=== PATIENT | male | born 1960 | race Caucasian/White ===

== ENCOUNTER 2020-07-16 08:30 | Emergency (ER) | payer BC ==
[2020-07-16] MEDS ORDERED: Sodium Chloride 0.9% 1,000 ML IV SCH ×2 (09:15→10:45)
[2020-07-16] MEDS ORDERED: Ondansetron 4 MG/2 ML SDV IVPUSH ONE (09:17)
--- NOTE | 2020-07-16 09:17 | EDM.PDOC ---
ED HPI GENERAL MEDICAL PROBLEM - General Chief Complaint: Cardiovascular Problem Stated Complaint: DIZZY/THROWING UP/RACING HEART Time Seen by Provider: 07/16/20 09:11 Source of Information: Reports: Patient History Limitations: Reports: No Limitations - History of Present Illness INITIAL COMMENTS - FREE TEXT/NARRATIVE: 59-year-old male presents to the ED after attending the walk-in clinic at [facility] this morning with chief complaint of palpitations. States he notices most when he is lying still at bedtime. He can feel his heart racing and going too fast and beating hard against his chest wall. This has been noticeable over the last 2 to 3 weeks. He gives a month history of loose diarrhea stools usually 2 or 3 times day for the last month as well. No blood in the stools noted. He states if he eats he usually has a diarrhea stool within 2 hours. No associated abdominal cramping pain. He feels lightheaded upon standing or particularly changing position from lying down to sitting and then standing. He does take medication for hypertension. Does have a mild a productive cough at times. Intermittent nausea as well. Reports he was so fatigued that he spent 18 hours in bed on July 19. Onset: Unknown/Unsure (Symptoms off and on for the last month.) Duration: Week(s):, Chronic, Getting Worse Location: Reports: Chest (Palpitations and racing heart. Associated with mild dizziness and lightheadedness.), Other (Diarrhea stools 2-3 times per day) Quality: Reports: Other Severity: Moderate Improves with: Reports: None Worsens with: Reports: Other (With standing up) Context: Denies: Activity ( from the seated position.), Exercise, Lifting, Sick Contact, Trauma, Other Associated Symptoms: Reports: Malaise, Shortness of Breath, Other (Pyuria polydipsia.). 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 07/16/20 [Rx] dexAMETHasone [Dexamethasone] 4 mg PO BID #10 tablet 07/16/20 [Rx] Past Medical History Cardiovascular History: Reports: Hypertension - Past Surgical History HEENT Surgical History: Reports: Tonsillectomy Social & Family History - Tobacco Use Tobacco Use Status *Q: Never Tobacco User - Caffeine Use Caffeine Use: Reports: Coffee - Recreational Drug Use Recreational Drug Use: No - Living Situation & Occupation Living situation: Reports: Single ED ROS GENERAL - Review of Systems Review Of Systems: See Below Constitutional: Reports: Malaise, Weakness, Fatigue, Decreased Appetite, Weight Loss. 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 Denies: Wheezing, Pleuritic Chest Pain Cardiovascular: Reports: Blood Pressure Problem, Lightheadedness (Agree with changing positions a orthostatic static), Palpitations (Is his heart is racing at times). Denies: Chest Pain, Claudication, Dyspnea on Exertion, Edema ( lightheadedness.), Orthopnea Endocrine: Reports: Fatigue GI/Abdominal: Reports: Diarrhea (2-3 loose), Nausea ( semiformed stools per day without blood.), Vomiting (Rare vomiting). Denies: Stool Incontinence ( Patient on nausea) : Reports: Frequency Musculoskeletal: Reports: Joint Pain (Lateral knee pain) Skin: Reports: No Symptoms Neurological: Reports: No Symptoms Psychiatric: Reports: No Symptoms ED EXAM, GENERAL - Physical Exam Exam: See Below Exam Limited By: No Limitations General Appearance: Alert, WD/WN, No Apparent Distress, Other (Temperature is 37.0. Heart rate is 113 and sinus tachycardia on the monitor. Respiratory is 19 with O2 sats of 96% room air BP is 159/89.) Eye Exam: Bilateral Eye: Normal Fundi, PERRL Throat/Mouth: Normal Inspection, Other Head: Atraumatic, Normocephalic (Tongue is dry and coated) Neck: Normal Inspection, Supple, Non-Tender, Full Range of Motion. No: Lymphadenopathy (L), Lymphadenopathy (R) Respiratory/Chest: No Respiratory Distress, Lungs Clear, Normal Breath Sounds, No Accessory Muscle Use Cardiovascular: Normal Peripheral Pulses, No Edema, No Gallop, No Murmur, No Rub, Tachycardia (Is tachycardia at 113/min at rest) Peripheral Pulses: 3+: Carotid (L), Carotid (R), Posterior Tibial (L), Posterior Tibial (R), Dorsalis Pedis (L), Dorsalis Pedis (R) GI/Abdominal: Normal Bowel Sounds, Soft, Non-Tender, No Organomegaly, No Mass, Pelvis Stable Back Exam: Normal Inspection, Full Range of Motion. No: CVA Tenderness (L), CVA Tenderness (R) Extremities: Normal Inspection, No Pedal Edema, Other (His knees are quite tender to touch.). No: Normal Range of Motion Neurological: Alert, Oriented, CN II-XII Intact, Normal Cognition Psychiatric: Normal Affect, Normal Mood Skin Exam: Warm, Dry, Intact, Normal Color, Other (Day triangular-shaped 2 cm x 2 cm triangular-shaped lesion adjacent to his left eye which appears to be a skin cancer.) #1 Interpretation EKG Date: 07/16/20 Time: 08:56 Rhythm: Other (Sinus tachycardia) Rate (Beats/Min): 110 Henlawson: LAD-Left Henlawson Deviation (Minimal left axis deviation -4 degrees) P-Wave: Present QRS: Other (Early R wave transition consider septal hypertrophy pattern.) ST-T: Other (T wave inversion V5 and V6 leads I and aVL nonspecific finding T wave flattening in aVF again nonspecific finding) EKG Interpretation Comments: Abnormal ECG Course - Vital Signs Last Recorded V/S: Last Vital Signs Temp 37.0 C 07/16/20 08:41 Pulse 113 H 07/16/20 08:41 Resp 19 07/16/20 08:41 BP 159/89 H 07/16/20 08:41 Pulse Ox 96 07/16/20 08:41 - Orders/Labs/Meds Orders: Active Orders 24 hr Category Date Time Status STOOL CULTURE/SHIGA TOXIN [MREF] Stat Lab 07/16/20 09:14 Ordered WBC, STOOL [OP] Stat Lab 07/16/20 09:14 Ordered Lactated Ringers [Ringers, Lactated] 1,000 ml Med 07/16/20 13:00 Active IV ASDIRECTED Magnesium Sulfate/Water [Magnesium Sulfate in Water Med 07/16/20 10:19 Active Premix] 4 gm Premix Bag 1 bag IV ONETIME Sodium Chloride 0.9% [Normal Saline] 1,000 ml Med 07/16/20 09:15 Active IV ASDIRECTED Sodium Chloride 0.9% [Normal Saline] 1,000 ml Med 07/16/20 10:45 Active IV ASDIRECTED Medication Orders Sodium Chloride (Normal Saline) 1,000 mls @ 999 mls/hr IV ASDIRECTED PATTI Last Admin: 07/16/20 09:25 Dose: 999 mls/hr Documented by: CARMEN Magnesium Sulfate 4 gm/ Premix 50 mls @ 12.5 mls/hr IV ONETIME ONE Stop: 07/16/20 14:18 Last Admin: 07/16/20 10:42 Dose: 12.5 mls/hr Documented by: CARMEN Sodium Chloride (Normal Saline) 1,000 mls @ 500 mls/hr IV ASDIRECTED PATTI Last Admin: 07/16/20 10:42 Dose: 500 mls/hr Documented by: CARMEN Lactated Ringer's (Ringers, Lactated) 1,000 mls @ 999 mls/hr IV ASDIRECTED PATTI Labs: Laboratory Tests 07/16/20 07/16/20 07/16/20 Range/Units 09:12 09:20 09:20 WBC 7.38 (4.23-9.07) K/mm3 RBC 4.43 L (4.63-6.08) M/mm3 Hgb 14.8 (13.7-17.5) gm/dl Hct 41.0 (40.1-51.0) % MCV 92.6 H (79.0-92.2) fl MCH 33.4 H (25.7-32.2) pg MCHC 36.1 H (32.2-35.5) g/dl RDW Std Deviation 39.5 (35.1-43.9) fL Plt Count 281 (163-337) K/mm3 MPV 9.7 (9.4-12.3) fl Neut % (Auto) 58.9 (34.0-67.9) % Lymph % (Auto) 19.0 L (21.8-53.1) % Kimball % (Auto) 21.0 H (5.3-12.2) % Eos % (Auto) 0.1 L (0.8-7.0) Baso % (Auto) 0.7 (0.1-1.2) % Neut # (Auto) 4.35 (1.78-5.38) K/mm3 Lymph # (Auto) 1.40 (1.32-3.57) K/mm3 Kimball # (Auto) 1.55 H (0.30-0.82) K/mm3 Eos # (Auto) 0.01 L (0.04-0.54) K/mm3 Baso # (Auto) 0.05 (0.01-0.08) K/mm3 Manual Slide Review Abnormal smear Sodium 129 L (136-145) mEq/L Potassium 2.9 L (3.5-5.1) mEq/L Chloride 90 L (98-107) mEq/L Carbon Dioxide 27 (21-32) mEq/L Anion Gap 14.9 (5-15) BUN 24 H (7-18) mg/dL Creatinine 1.3 (0.7-1.3) mg/dL Est Cr Clr Drug Dosing 72.01 mL/min Estimated GFR (MDRD) 57 (>60) mL/min BUN/Creatinine Ratio 18.5 H (14-18) Glucose 271 H (74-106) mg/dL POC Glucose 255 H (70-105) mg/dL Hemoglobin A1c (4.50-6.20) % Calcium 9.3 (8.5-10.1) mg/dL Magnesium 1.4 L (1.8-2.4) mg/dl Total Bilirubin 0.8 (0.2-1.0) mg/dL AST 47 H (15-37) U/L ALT 93 H (16-63) U/L Alkaline Phosphatase 50 (46-116) U/L Troponin I < 0.017 (0.00-0.056) ng/mL C-Reactive Protein 5.6 H* (<1.0) mg/dL Total Protein 8.7 H (6.4-8.2) g/dl Albumin 4.0 (3.4-5.0) g/dl Globulin 4.7 gm/dL Albumin/Globulin Ratio 0.9 L (1-2) TSH 3rd Generation 0.625 (0.358-3.74) uIU/mL Urine Color (Yellow) Urine Appearance (Clear) Urine pH (5.0-8.0) Ur Specific Lincoln (1.005-1.030) Urine Protein (Negative) Urine Glucose (UA) (Negative) Urine Ketones (Negative) Urine Occult Blood (Negative) Urine Nitrite (Negative) Urine Bilirubin (Negative) Urine Urobilinogen (0.2-1.0) Ur Leukocyte Esterase (Negative) U Hyaline Cast (Auto) (0-5) /lpf Urine RBC (0-5) /hpf Urine WBC (0-5) /hpf Ur Epithelial Cells (0-5) /hpf Urine Bacteria (FEW) /hpf Urine Mucus (FEW) /hpf SARS-CoV-2 RNA (FABRICIO) (NEGATIVE) 07/16/20 07/16/20 07/16/20 Range/Units 09:20 10:28 10:45 WBC (4.23-9.07) K/mm3 RBC (4.63-6.08) M/mm3 Hgb (13.7-17.5) gm/dl Hct (40.1-51.0) % MCV (79.0-92.2) fl MCH (25.7-32.2) pg MCHC (32.2-35.5) g/dl RDW Std Deviation (35.1-43.9) fL Plt Count (163-337) K/mm3 MPV (9.4-12.3) fl Neut % (Auto) (34.0-67.9) % Lymph % (Auto) (21.8-53.1) % Kimball % (Auto) (5.3-12.2) % Eos % (Auto) (0.8-7.0) Baso % (Auto) (0.1-1.2) % Neut # (Auto) (1.78-5.38) K/mm3 Lymph # (Auto) (1.32-3.57) K/mm3 Kimball # (Auto) (0.30-0.82) K/mm3 Eos # (Auto) (0.04-0.54) K/mm3 Baso # (Auto) (0.01-0.08) K/mm3 Manual Slide Review Sodium (136-145) mEq/L Potassium (3.5-5.1) mEq/L Chloride (98-107) mEq/L Carbon Dioxide (21-32) mEq/L Anion Gap (5-15) BUN (7-18) mg/dL Creatinine (0.7-1.3) mg/dL Est Cr Clr Drug Dosing mL/min Estimated GFR (MDRD) (>60) mL/min BUN/Creatinine Ratio (14-18) Glucose (74-106) mg/dL POC Glucose (70-105) mg/dL Hemoglobin A1c 7.60 H (4.50-6.20) % Calcium (8.5-10.1) mg/dL Magnesium (1.8-2.4) mg/dl Total Bilirubin (0.2-1.0) mg/dL AST (15-37) U/L ALT (16-63) U/L Alkaline Phosphatase (46-116) U/L Troponin I (0.00-0.056) ng/mL C-Reactive Protein (<1.0) mg/dL Total Protein (6.4-8.2) g/dl Albumin (3.4-5.0) g/dl Globulin gm/dL Albumin/Globulin Ratio (1-2) TSH 3rd Generation (0.358-3.74) uIU/mL Urine Color Yellow (Yellow) Urine Appearance Clear (Clear) Urine pH 6.0 (5.0-8.0) Ur Specific Lincoln > or = 1.030 (1.005-1.030) Urine Protein 2+ H (Negative) Urine Glucose (UA) 1+ H (Negative) Urine Ketones Negative (Negative) Urine Occult Blood Negative (Negative) Urine Nitrite Negative (Negative) Urine Bilirubin Negative (Negative) Urine Urobilinogen 0.2 (0.2-1.0) Ur Leukocyte Esterase Negative (Negative) U Hyaline Cast (Auto) 10-20 H (0-5) /lpf Urine RBC 0-5 (0-5) /hpf Urine WBC 0-5 (0-5) /hpf Ur Epithelial Cells 0-5 (0-5) /hpf Urine Bacteria Moderate H (FEW) /hpf Urine Mucus Moderate H (FEW) /hpf SARS-CoV-2 RNA (FABRICIO) Positive H (NEGATIVE) Meds: Medications Generic Name Dose Route Start Last Admin Trade Name Freq PRN Reason Stop Dose Admin Sodium Chloride 1,000 mls @ 999 mls/hr 07/16/20 09:15 07/16/20 09:25 Normal Saline IV 999 mls/hr ASDIRECTED PATTI Administration Magnesium Sulfate 4 gm/ Premix 50 mls @ 12.5 mls/hr 07/16/20 10:19 07/16/20 10:42 IV 07/16/20 14:18 12.5 mls/hr ONETIME ONE Administration Sodium Chloride 1,000 mls @ 500 mls/hr 07/16/20 10:45 07/16/20 10:42 Normal Saline IV 500 mls/hr ASDIRECTED PATTI Administration Lactated Ringer's 1,000 mls @ 999 mls/hr 07/16/20 13:00 Ringers, Lactated IV ASDIRECTED PATTI Discontinued Medications Generic Name Dose Route Start Last Admin Trade Name Zaida PRN Reason Stop Dose Admin Dexamethasone 6 mg 07/16/20 12:36 Decadron IVPUSH 07/16/20 12:37 ONETIME ONE Potassium Chloride 10 meq/ 100 mls @ 100 mls/hr 07/16/20 10:30 07/16/20 13:10 Premix IV 07/16/20 13:29 100 mls/hr Q1H PATTI Administration Ondansetron HCl 4 mg 07/16/20 09:17 07/16/20 09:32 Zofran IVPUSH 07/16/20 09:18 4 mg ONETIME ONE Administration - Radiology Interpretation Free Text/Narrative:: 59-year-old male who is a very poor historian presents to the ED from the clinic after he presented there complaining of palpitations and his heart was racing and going to fast. He can feel his heartbeat in his ears. He reports he not been feeling well for several weeks and perhaps even up to a month. Reports having loose yellowy diarrhea 2 or 3 times daily. Very poor appetite. Increased fatigue. Mild cough with minimal productive white sputum. Mild headache no definitive chills and no noted fever. 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 His heart rate at baseline was 118 to 124/min. It is sinus tachycardia. Patient clinically appears to be volume depleted. Plan he will receive a liter of fluids IV D5 LR. PlaN: labs will be collected. 1 view chest x-ray will be done as well. COVID-19 screen will be carried out. - Re-Assessments/Exams Free Text/Narrative Re-Assessment/Exam: 07/16/20 10:16 chest x-ray reveals mild to moderate cardiomegaly. There is minimal groundglass airspace disease within the left lower lung field no pneumothorax no pleural effusion. Allthough this would be an atypical presentation for coronavirus infection a Covid test will be obtained heart rate is currently down to 99/min with BP 148/85. O2 sats are 94% room air 07/16/20 10:19 White count is 7.38 with 59% neutrophils and 19% lymphocytes. Hemoglobin is 14.8 with hematocrit of 41.0. MCV is 92.6. Platelet count 281,000. Sodium is low at 129 potassium is low at 2.9. Chloride is 90 with a bicarb of 27. Anion gap is 14.9 BUN is 24 with a creatinine of 1.3 and a GFR 57. BUN creatinine ratio is elevated at 18.5 glucose is elevated at 271 with a bedside glucose at 255. Patient has no history of type 2 diabetes although this is highly suggestive. His hemoglobin A1c is 7.60. Calcium is 9.3 with a magnesium low at 1.4. Bilirubin is 0.8 AST 47 with an ALT of 993. Alk phos days is 50 troponin I is less than 0.017. C-reactive protein is slightly elevated at 5.6. Total protein 8.7 with an albumin fraction of 4.0 TSH is 0.625 normal. Patient will be given magnesium 4 g IV. He will also receive K rider 10 mEq x 3. 07/16/20 10:34 Discussed the options with the patient in terms that he needs IV fluid replacement to improve his hyponatremia. He needs serum magnesium to improve his magnesium levels and potassium supplementation. It appears if he is type II diabetic he is very minimally diabetic as his glycosylated protein is 7.6. 07/16/20 12:33 and 19 screen did come back positive. From what we can ascertain the patient spent all day Tuesday in bed and likely was ill on Tuesday --making him on day 6 of illness. Current O2 sats are 92 to 94% on room air. Departure - Departure Time of Disposition: 14:10 Disposition: Home, Self-Care 01 Reason for Transfer *Q: Other Condition: Fair Clinical Impression: Dehydration with hyponatremia, Hypomagnesemia syndrome, Hypokalemia due to inadequate potassium intake, COVID-19 determined by clinical diagnostic criteria Prescriptions: dexAMETHasone [Dexamethasone] 4 mg PO BID #10 tablet Magnesium Chloride [Slow-Mag] 71.5 mg PO BID #14 tablet.dr Referrals: Derek Calixto Jr, MD [Primary Care Provider] - Forms: ED Department Discharge, ED Return to Work/School Form Additional Instructions: Evaluation in the emergency room today in regards to generally not feeling well with generalized weakness lightheadedness and feeling faint. Lab tests done through the ED revealed that you were moderately dehydrated. It did prove that you were COVID-19 positive with atypical presentation since you do not have a severe cough or low oxygen levels. You were found to be very low on many of your serum electrolytes. Sodium was low at 127 this is secondary to drinking primarily water instead of any juices which contain electrolytes. The extra water diluted the sodium in your bloodstream which makes muscles weak and nausea and vomiting and loss of appetite. Lack of ability to eat caused a lobe serum potassium level which we replaced in the ED. It also caused you to have a very low serum magnesium level which we replaced in the ED. This too will improve once you are able to eat again particularly meat. 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 COVID-19 typically makes you quite ill for a period of 2 weeks. We presume that you got sick on about Tuesday, July 12. This means you would have to self quarantine for another 10 days to prevent exposure of other personnel to the virus. Typically day 8-10 of the illness can be the worst in terms of no appetite severe fatigue and low oxygen levels. If this occurs you should return to the ED. I am going to start you on steroids dexamethasone which was started in the ED. You will need to take a tablet of dexamethasone twice daily usually with breakfast and supper next 5 days to help reduce inflammation caused by the COVID-19 illness and hopefully prevent you from having to come back to the hospital. You also need a magnesium supplement tablet Slow-Mag 1 tablet twice daily for the next week. Sepsis Event Note (ED) - Evaluation Sepsis Screening Result: No Definite Risk - Focused Exam Vital Signs: Vital Signs Temp Pulse Resp BP Pulse Ox 07/16/20 08:41 37.0 C 113 H 19 159/89 H 96 - My Orders Last 24 Hours: My Active Orders 07/16/20 09:14 STOOL CULTURE/SHIGA TOXIN [MREF] Stat WBC, STOOL [OP] Stat 07/16/20 09:15 Sodium Chloride 0.9% [Normal Saline] 1,000 ml IV ASDIRECTED 07/16/20 10:19 Magnesium Sulfate/Water [Magnesium Sulfate in Water Premix] 4 gm Premix Bag 1 bag IV ONETIME 07/16/20 10:45 Sodium Chloride 0.9% [Normal Saline] 1,000 ml IV ASDIRECTED 07/16/20 13:00 Lactated Ringers [Ringers, Lactated] 1,000 ml IV ASDIRECTED - Assessment/Plan Last 24 Hours: My Active Orders 07/16/20 09:14 STOOL CULTURE/SHIGA TOXIN [MREF] Stat WBC, STOOL [OP] Stat 07/16/20 09:15 Sodium Chloride 0.9% [Normal Saline] 1,000 ml IV ASDIRECTED 07/16/20 10:19 Magnesium Sulfate/Water [Magnesium Sulfate in Water Premix] 4 gm Premix Bag 1 bag IV ONETIME 07/16/20 10:45 Sodium Chloride 0.9% [Normal Saline] 1,000 ml IV ASDIRECTED 07/16/20 13:00 Lactated Ringers [Ringers, Lactated] 1,000 ml IV ASDIRECTED
[2020-07-16 09:56] LABS: HEMOGLOBIN A1C 7.6 % (4.50-6.20)
--- NOTE | 2020-07-16 10:16 | CR ---
PROCEDURE INFORMATION: Exam: XR Chest, 1 View Exam date and time: 07/16/2020 9:16 AM Age: 59 years old Clinical indication: Patient HX: Mild productive cough TECHNIQUE: Imaging protocol: XR of the chest Views: 1 view. COMPARISON: No relevant prior studies available. FINDINGS: Lungs: Minimal ground-glass airspace disease within the left lower lung field. Pleural space: Unremarkable. No pleural effusion. No pneumothorax. Heart/Mediastinum: Unremarkable. No cardiomegaly. Bones/joints: Unremarkable. IMPRESSION: Minimal ground-glass airspace disease within the left lower lung field. Followup radiographs recommended after appropriate therapy. Thank you for allowing us to participate in the care of your patient. Dictated and Authenticated by: García Rivera MD 07/16/2020 11:01 AM Central Time ([place] & [place]) JOHAN
[2020-07-16] MEDS ORDERED: Magnesium Sulfate/Water 4 GM in Premix Bag 1 BAG IV ONE (10:19)
[2020-07-16] MEDS: Potassium Chloride 10 MEQ in Premix Bag 1 BAG IV SCH ×3 (10:43→13:10)
[2020-07-16] MEDS ORDERED: Dexamethasone 10 MG/ML SDV IVPUSH ONE (12:36)
[2020-07-16] MEDS ORDERED: Lactated Ringers 1,000 ML IV SCH (13:00)
== END 2020-07-16 14:30 | disposition home or self-care (01) ==
LOC: JD.ED 08:30
DX: U07.1 COVID-19 (principal); E86.0 Dehydration; E87.1 Hypo-osmolality and hyponatremia; E83.42 Hypomagnesemia; E87.6 Hypokalemia; I10 Essential (primary) hypertension; R00.0 Tachycardia, unspecified
CPT/HCPCS: 36415; 71045; 80053; 81001; 82962; 83036; 83735; 84443; 84484; 85025; 86140; 87635; 99285; J1100; J2405; J3475; J3480; J7030; 93010; 99284; U0002

== ENCOUNTER 2024-05-15 09:38 | Emergency (ER) | payer BC ==
[2024-05-15 10:20] LABS: BASOPHILS ABSOLUTE AUTO 0.1 K/mm3 (0.0-0.2); BASOPHILS PERCENT AUTO 1.1 % (0.0-1.0); EOSINOPHILS PERCENT AUTO 0.5 % (0.0-6.0); HEMATOCRIT 35.2 % (42.0-52.0); HEMOGLOBIN 12.3 gm/dl (14.0-18.0); IMMATURE GRAN ABSOLUTE AUTO 0.02 K/mm3 (0.00-0.05); IMMATURE GRAN PERCENT AUTO 0.2 % (0.0-0.4); LYMPHOCYTES ABSOLUTE AUTO 1.4 K/mm3 (1.0-4.8); LYMPHOCYTES PERCENT AUTO 16.8 % (24.0-44.0); MEAN CORPUSCULAR HEMOGLOBIN 31.1 pg (28.0-32.0); MEAN CORPUSCULAR HGB CONC 34.9 g/dl (32.0-36.0); MEAN CORPUSCULAR VOLUME 89.1 fl (83.0-99.0); MEAN PLATELET VOLUME 9.2 fl (9.4-12.4); MONOCYTES ABSOLUTE AUTO 1.4 K/mm3 (0.0-0.8); MONOCYTES PERCENT AUTO 17.3 % (0.0-8.0); NEUTROPHILS ABSOLUTE AUTO 5.3 K/mm3 (1.8-7.7); NEUTROPHILS PERCENT AUTO 64.1 % (41.0-71.0); PLATELET COUNT,PLT 238 K/mm3 (150-400); RED BLOOD CELL COUNT 3.95 M/mm3 (4.52-5.90); WHITE BLOOD CELL COUNT,WBC 8.26 K/mm3 (3.9-11.3)
[2024-05-15 10:48] LABS: A/G RATIO 0.9 (1-2); ALBUMIN 4.1 g/dl (3.4-5.0); ANION GAP 14.6 (5-15); BILIRUBIN TOTAL 1.3 mg/dL (0.2-1.0); BUN/CREATININE RATIO 14.6 (14-18); CALCIUM 8.9 mg/dL (8.5-10.1); CREATININE 1.3 mg/dL (0.7-1.3); EST CRCL DRUG DOSING (CG) 68.5 mL/min; POTASSIUM,K 3.6 mEq/L (3.5-5.1); PROTEIN TOTAL,TP 8.6 g/dl (6.4-8.2)
[2024-05-15] MEDS: LORazepam 2 MG/ML SDV IVPUSH ONE ×2 (10:49→13:43)
[2024-05-15] MEDS: Sodium Chloride 0.9% 10 ML Syringe FLUSH PRN (10:49)
[2024-05-15] MEDS: Sodium Chloride 0.9% 1,000 ML IV ONE ×2 (10:49→13:56)
[2024-05-15 12:28] LABS: APPEARANCE,URINE CLEAR (Clear); BILIRUBIN,URINE NEGATIVE (Negative); COLOR,URINE YELLOW (Yellow); GLUCOSE,URINE NEGATIVE (Negative); KETONES,URINE TRACE (Negative); LEUKOCYTE ESTERASE,URINE NEGATIVE (Negative); NITRITE,URINE NEGATIVE (Negative); OCCULT BLOOD,URINE NEGATIVE (Negative); PROTEIN,URINE TRACE (Negative); UROBILINOGEN,URINE 0.2 (0.2-1.0)
[2024-05-15 12:41] LABS: BACTERIA,URINE FEW /hpf (FEW); MUCUS,URINE RARE /hpf (FEW); RBC,URINE 0-5 /hpf (0-5); SQUAMOUS EPITHELIAL CELLS,UR NOT SEEN /hpf (0-5); WBC,URINE 0-5 /hpf (0-5)
[2024-05-15] MEDS ORDERED: Magnesium Sulfate (4.06 MEQ/ML) 5 GM/10 ML SDV IV ONE (13:32)
[2024-05-15] MEDS: Magnesium Sulfate/Water 2 GM in Premix Bag 1 BAG IV ONE (13:43)
== END 2024-05-15 16:10 | disposition left against medical advice (07) ==
LOC: JD.ED 09:38
DX: F10.939 Alcohol use, unspecified with withdrawal, unspecified (principal); E87.1 Hypo-osmolality and hyponatremia; E83.42 Hypomagnesemia; E78.00 Pure hypercholesterolemia, unspecified; I10 Essential (primary) hypertension; E11.9 Type 2 diabetes mellitus without complications; Z86.16 Personal history of COVID-19; Z79.899 Other long term (current) drug therapy; Z79.84 Long term (current) use of oral hypoglycemic drugs
CPT/HCPCS: 36415; 80053; 80307; 81001; 83735; 85025; 96361; 96365; 96366; 96375; 96376; 99284; J2060; J3475; J3490; J7030

== ENCOUNTER 2025-07-20 00:03 | Inpatient (IN) | payer BC ==
[2025-07-20 00:11] LABS: BASOPHILS ABSOLUTE AUTO 0.1 K/mm3 (0.0-0.2); BASOPHILS PERCENT AUTO 0.4 % (0.0-1.0); EOSINOPHILS ABSOLUTE AUTO 0.0 K/mm3 (0.0-0.4); EOSINOPHILS PERCENT AUTO 0.0 % (0.0-6.0); IMMATURE GRAN ABSOLUTE AUTO 0.13 K/mm3 (0.00-0.05); IMMATURE GRAN PERCENT AUTO 0.9 % (0.0-0.4); LYMPHOCYTES ABSOLUTE AUTO 0.6 K/mm3 (1.0-4.8); LYMPHOCYTES PERCENT AUTO 4.2 % (24.0-44.0); MEAN PLATELET VOLUME 9.5 fl (9.4-12.4); MONOCYTES ABSOLUTE AUTO 1.1 K/mm3 (0.0-0.8); MONOCYTES PERCENT AUTO 7.7 % (0.0-8.0); NEUTROPHILS ABSOLUTE AUTO 12.2 K/mm3 (1.8-7.7); NEUTROPHILS PERCENT AUTO 86.8 % (41.0-71.0); NRBC ABSOLUTE 0.00 (0.00-0.02); NRBC PERCENT 0.0 % (0.0-0.2); PLATELET COUNT,PLT 167 K/mm3 (150-400); RED BLOOD CELL COUNT 3.85 M/mm3 (4.52-5.90); WHITE BLOOD CELL COUNT,WBC 14.09 K/mm3 (3.9-11.3)
[2025-07-20 00:30] LABS: INR 1.06
[2025-07-20] MEDS: fentaNYL 100 MCG/2 ML SDV IVPUSH ONE (00:34)
[2025-07-20] MEDS: Iopamidol 612 MG/ML 100 ML Bottle IVPUSH ONE (00:36)
[2025-07-20] MEDS: Sodium Chloride 0.9% 10 ML Syringe FLUSH PRN (00:36)
[2025-07-20] MEDS: Iopamidol 612 MG/ML 30 ML SDV IV ONE (00:36)
[2025-07-20 00:42] LABS: A/G RATIO 0.8 (1-2); ALANINE AMINOTRANSFERASE,ALT 97 U/L (16-63); ASPARTATE AMNIOTRANSFERASE,AST 247 U/L (15-37); BILIRUBIN TOTAL 1.3 mg/dL (0.2-1.0); BLOOD UREA NITROGEN,BUN 16 mg/dL (7-18); CARBON DIOXIDE,CO2 24 mEq/L (21-32); CHLORIDE,CL 93 mEq/L (98-107); CREATININE 1.2 mg/dL (0.7-1.3); ESTIMATED GFR 68 mL/min (>60); ETHANOL BLOOD MEDICAL 0.15 gm% (0.00); GLUCOSE RANDOM 160 mg/dL (70-99); POTASSIUM,K 4.3 mEq/L (3.5-5.1); PROTEIN TOTAL,TP 8.9 g/dl (6.4-8.2); SODIUM,NA 135 mEq/L (136-145)
[2025-07-20 00:44] LABS: CREATINE KINASE,CK 2012 U/L (39-308)
[2025-07-20] MEDS: Thiamine 200 MG/2 ML MDV IVPUSH ONE (01:43)
[2025-07-20 08:26] LABS: BASOPHILS ABSOLUTE AUTO 0.0 K/mm3 (0.0-0.2); BASOPHILS PERCENT AUTO 0.3 % (0.0-1.0); EOSINOPHILS ABSOLUTE AUTO 0.0 K/mm3 (0.0-0.4); EOSINOPHILS PERCENT AUTO 0.0 % (0.0-6.0); IMMATURE GRAN ABSOLUTE AUTO 0.04 K/mm3 (0.00-0.05); IMMATURE GRAN PERCENT AUTO 0.4 % (0.0-0.4); LYMPHOCYTES ABSOLUTE AUTO 0.6 K/mm3 (1.0-4.8); LYMPHOCYTES PERCENT AUTO 6.1 % (24.0-44.0); MEAN PLATELET VOLUME 9.7 fl (9.4-12.4); MONOCYTES ABSOLUTE AUTO 1.0 K/mm3 (0.0-0.8); MONOCYTES PERCENT AUTO 9.9 % (0.0-8.0); NEUTROPHILS ABSOLUTE AUTO 8.3 K/mm3 (1.8-7.7); NEUTROPHILS PERCENT AUTO 83.3 % (41.0-71.0); NRBC ABSOLUTE 0.00 (0.00-0.02); NRBC PERCENT 0.0 % (0.0-0.2); PLATELET COUNT,PLT 150 K/mm3 (150-400); RED BLOOD CELL COUNT 3.81 M/mm3 (4.52-5.90); WHITE BLOOD CELL COUNT,WBC 9.90 K/mm3 (3.9-11.3)
[2025-07-20 09:04] LABS: A/G RATIO 0.8 (1-2); ALANINE AMINOTRANSFERASE,ALT 105.0 U/L (16-63); ASPARTATE AMNIOTRANSFERASE,AST 287.0 U/L (15-37); BILIRUBIN TOTAL 1.2 mg/dL (0.2-1.0); BLOOD UREA NITROGEN,BUN 14.0 mg/dL (7-18); CARBON DIOXIDE,CO2 21.0 mEq/L (21-32); CHLORIDE,CL 93.0 mEq/L (98-107); CREATININE 1.0 mg/dL (0.7-1.3); EST CRCL DRUG DOSING (CG) 87.91 mL/min; ESTIMATED GFR 85.0 mL/min (>60); GLUCOSE RANDOM 141.0 mg/dL (70-99); POTASSIUM,K 3.6 mEq/L (3.5-5.1); PROTEIN TOTAL,TP 8.8 g/dl (6.4-8.2); SODIUM,NA 134.0 mEq/L (136-145)
[2025-07-20 09:06] LABS: CREATINE KINASE,CK 5581.0 U/L (39-308)
[2025-07-20] MEDS: Magnesium Sulf/Wat 4 GM/50 mL 4 GM in Premix Bag 1 BAG IV ONE (11:14)
[2025-07-20] MEDS: Lactated Ringers 1,000 ML IV ONE ×3 (11:42→14:50)
[2025-07-20] MEDS: LORazepam 2 MG/ML SDV IV PRN (14:55)
[2025-07-20] MEDS: Insulin Lispro 100 Unit/ML 3 ML KwikPen SUBCUT SCH (18:19)
[2025-07-20] MEDS: Lactated Ringers 1,000 ML IV SCH (20:43)
[2025-07-21] MEDS: LORazepam 2 MG/ML SDV IV PRN (01:30)
[2025-07-21 05:58] LABS: BASOPHILS ABSOLUTE AUTO 0.0 K/mm3 (0.0-0.2); BASOPHILS PERCENT AUTO 0.2 % (0.0-1.0); EOSINOPHILS ABSOLUTE AUTO 0.0 K/mm3 (0.0-0.4); EOSINOPHILS PERCENT AUTO 0.0 % (0.0-6.0); IMMATURE GRAN ABSOLUTE AUTO 0.11 K/mm3 (0.00-0.05); IMMATURE GRAN PERCENT AUTO 0.9 % (0.0-0.4); LYMPHOCYTES ABSOLUTE AUTO 0.6 K/mm3 (1.0-4.8); LYMPHOCYTES PERCENT AUTO 5.1 % (24.0-44.0); MEAN PLATELET VOLUME 10.0 fl (9.4-12.4); MONOCYTES ABSOLUTE AUTO 1.5 K/mm3 (0.0-0.8); MONOCYTES PERCENT AUTO 11.8 % (0.0-8.0); NEUTROPHILS ABSOLUTE AUTO 10.0 K/mm3 (1.8-7.7); NEUTROPHILS PERCENT AUTO 82.0 % (41.0-71.0); NRBC ABSOLUTE 0.00 (0.00-0.02); NRBC PERCENT 0.0 % (0.0-0.2); PLATELET COUNT,PLT 149 K/mm3 (150-400); RED BLOOD CELL COUNT 3.70 M/mm3 (4.52-5.90); WHITE BLOOD CELL COUNT,WBC 12.24 K/mm3 (3.9-11.3)
[2025-07-21 06:22] LABS: A/G RATIO 0.6 (1-2); ALANINE AMINOTRANSFERASE,ALT 82.0 U/L (16-63); ASPARTATE AMNIOTRANSFERASE,AST 173.0 U/L (15-37); BILIRUBIN TOTAL 1.2 mg/dL (0.2-1.0); BLOOD UREA NITROGEN,BUN 11.0 mg/dL (7-18); CARBON DIOXIDE,CO2 22.0 mEq/L (21-32); CHLORIDE,CL 91.0 mEq/L (98-107); CREATININE 0.8 mg/dL (0.7-1.3); EST CRCL DRUG DOSING (CG) 109.89 mL/min; ESTIMATED GFR 99.0 mL/min (>60); GLUCOSE RANDOM 138.0 mg/dL (70-99); POTASSIUM,K 3.6 mEq/L (3.5-5.1); PROTEIN TOTAL,TP 7.7 g/dl (6.4-8.2); SODIUM,NA 130.0 mEq/L (136-145)
[2025-07-21] MEDS: Magnesium Sulf/Wat 4 GM/50 mL 4 GM in Premix Bag 1 BAG IV ONE (08:26)
[2025-07-21] MEDS: PHENobarbitaL sodium 260 MG in Sodium Chloride 0.9% 100 ML IV ONE (09:17)
[2025-07-21] MEDS: Thiamine 200 MG/2 ML MDV IVPUSH SCH (11:23)
[2025-07-21] MEDS: Folic Acid 50 MG/10 ML MDV IV SCH (11:23)
[2025-07-21] MEDS ORDERED: PHENobarbital Sodium 65 MG/ML SDV IVPUSH ONE (12:46)
[2025-07-21] MEDS: cefTRIAXone 1 GM in Water For Injection, Sterile 10 ML IVPUSH SCH (14:44)
[2025-07-22 01:37] LABS: BASOPHILS ABSOLUTE AUTO 0.0 K/mm3 (0.0-0.2); BASOPHILS PERCENT AUTO 0.2 % (0.0-1.0); EOSINOPHILS ABSOLUTE AUTO 0.0 K/mm3 (0.0-0.4); EOSINOPHILS PERCENT AUTO 0.1 % (0.0-6.0); IMMATURE GRAN ABSOLUTE AUTO 0.07 K/mm3 (0.00-0.05); IMMATURE GRAN PERCENT AUTO 0.5 % (0.0-0.4); LYMPHOCYTES ABSOLUTE AUTO 1.9 K/mm3 (1.0-4.8); LYMPHOCYTES PERCENT AUTO 14.1 % (24.0-44.0); MEAN PLATELET VOLUME 9.8 fl (9.4-12.4); MONOCYTES ABSOLUTE AUTO 1.9 K/mm3 (0.0-0.8); MONOCYTES PERCENT AUTO 14.0 % (0.0-8.0); NEUTROPHILS ABSOLUTE AUTO 9.4 K/mm3 (1.8-7.7); NEUTROPHILS PERCENT AUTO 71.1 % (41.0-71.0); NRBC ABSOLUTE 0.00 (0.00-0.02); NRBC PERCENT 0.0 % (0.0-0.2); PLATELET COUNT,PLT 146 K/mm3 (150-400); RED BLOOD CELL COUNT 3.56 M/mm3 (4.52-5.90); WHITE BLOOD CELL COUNT,WBC 13.17 K/mm3 (3.9-11.3)
[2025-07-22 02:07] LABS: A/G RATIO 0.6 (1-2); ALANINE AMINOTRANSFERASE,ALT 71.0 U/L (16-63); ASPARTATE AMNIOTRANSFERASE,AST 128.0 U/L (15-37); BILIRUBIN TOTAL 0.8 mg/dL (0.2-1.0); BLOOD UREA NITROGEN,BUN 17.0 mg/dL (7-18); CARBON DIOXIDE,CO2 27.0 mEq/L (21-32); CHLORIDE,CL 98.0 mEq/L (98-107); CREATININE 1.0 mg/dL (0.7-1.3); EST CRCL DRUG DOSING (CG) 87.91 mL/min; ESTIMATED GFR 85.0 mL/min (>60); GLUCOSE RANDOM 158.0 mg/dL (70-99); POTASSIUM,K 4.3 mEq/L (3.5-5.1); PROTEIN TOTAL,TP 7.1 g/dl (6.4-8.2); SODIUM,NA 137.0 mEq/L (136-145)
[2025-07-22 02:09] LABS: CREATINE KINASE,CK 1993.0 U/L (39-308)
[2025-07-22 02:30] LABS: O2 SATURATION ARTERIAL 89.8 % (96.0-97.0); PCO2 ARTERIAL 53.0 mmHg (35.0-45.0); PO2 ARTERIAL 61.0 mmHg (80.0-100.0)
[2025-07-22 02:31] LABS: BASE EXCESS ARTERIAL -3.8 (-2-2.0); BICARBONATE,ARTERIAL 23.8 meq/L (22.0-26.0)
[2025-07-22] MEDS: Iopamidol 755 Mg/ML 100 ML Bottle IVPUSH ONE (02:56)
[2025-07-22] MEDS: Sodium Chloride 0.9% 10 ML Syringe FLUSH PRN (02:56)
[2025-07-22 03:04] LABS: BASE EXCESS ARTERIAL -2.8 (-2-2.0); BICARBONATE,ARTERIAL 23.7 meq/L (22.0-26.0); O2 SATURATION ARTERIAL 95.5 % (96.0-97.0); PCO2 ARTERIAL 47.0 mmHg (35.0-45.0); PO2 ARTERIAL 73.0 mmHg (80.0-100.0)
[2025-07-22] MEDS: Ketorolac 30 MG/ML SDV IVPUSH PRN (06:21)
[2025-07-23 04:26] LABS: BASOPHILS ABSOLUTE AUTO 0.0 K/mm3 (0.0-0.2); BASOPHILS PERCENT AUTO 0.6 % (0.0-1.0); EOSINOPHILS ABSOLUTE AUTO 0.1 K/mm3 (0.0-0.4); EOSINOPHILS PERCENT AUTO 0.8 % (0.0-6.0); IMMATURE GRAN ABSOLUTE AUTO 0.09 K/mm3 (0.00-0.05); IMMATURE GRAN PERCENT AUTO 1.4 % (0.0-0.4); LYMPHOCYTES ABSOLUTE AUTO 1.4 K/mm3 (1.0-4.8); LYMPHOCYTES PERCENT AUTO 21.3 % (24.0-44.0); MEAN PLATELET VOLUME 9.5 fl (9.4-12.4); MONOCYTES ABSOLUTE AUTO 1.2 K/mm3 (0.0-0.8); MONOCYTES PERCENT AUTO 17.7 % (0.0-8.0); NEUTROPHILS ABSOLUTE AUTO 3.8 K/mm3 (1.8-7.7); NEUTROPHILS PERCENT AUTO 58.2 % (41.0-71.0); NRBC ABSOLUTE 0.00 (0.00-0.02); NRBC PERCENT 0.0 % (0.0-0.2); PLATELET COUNT,PLT 145 K/mm3 (150-400); RED BLOOD CELL COUNT 3.59 M/mm3 (4.52-5.90); WHITE BLOOD CELL COUNT,WBC 6.49 K/mm3 (3.9-11.3)
[2025-07-23 05:13] LABS: A/G RATIO 0.5 (1-2); ALANINE AMINOTRANSFERASE,ALT 76.0 U/L (16-63); ASPARTATE AMNIOTRANSFERASE,AST 130.0 U/L (15-37); BILIRUBIN TOTAL 1.1 mg/dL (0.2-1.0); BLOOD UREA NITROGEN,BUN 11.0 mg/dL (7-18); CARBON DIOXIDE,CO2 30.0 mEq/L (21-32); CHLORIDE,CL 97.0 mEq/L (98-107); CREATININE 0.6 mg/dL (0.7-1.3); EST CRCL DRUG DOSING (CG) 146.51 mL/min; ESTIMATED GFR 108.0 mL/min (>60); GLUCOSE RANDOM 139.0 mg/dL (70-99); POTASSIUM,K 2.6 mEq/L (3.5-5.1); PROTEIN TOTAL,TP 7.2 g/dl (6.4-8.2); SODIUM,NA 137.0 mEq/L (136-145)
[2025-07-23] MEDS: Potassium Chloride 20 MEQ Tab.ER PO ONE ×3 (05:56→22:36)
[2025-07-23 08:31] LABS: PHOSPHORUS 2.1 mg/dL (2.6-4.7)
[2025-07-23] MEDS: Ketorolac 30 MG/ML SDV IVPUSH PRN (17:18)
[2025-07-24 05:16] LABS: BASOPHILS ABSOLUTE AUTO 0.1 K/mm3 (0.0-0.2); BASOPHILS PERCENT AUTO 0.8 % (0.0-1.0); EOSINOPHILS ABSOLUTE AUTO 0.1 K/mm3 (0.0-0.4); EOSINOPHILS PERCENT AUTO 1.2 % (0.0-6.0); IMMATURE GRAN ABSOLUTE AUTO 0.21 K/mm3 (0.00-0.05); IMMATURE GRAN PERCENT AUTO 3.5 % (0.0-0.4); LYMPHOCYTES ABSOLUTE AUTO 1.7 K/mm3 (1.0-4.8); LYMPHOCYTES PERCENT AUTO 28.4 % (24.0-44.0); MEAN PLATELET VOLUME 9.9 fl (9.4-12.4); MONOCYTES ABSOLUTE AUTO 1.3 K/mm3 (0.0-0.8); MONOCYTES PERCENT AUTO 21.9 % (0.0-8.0); NEUTROPHILS ABSOLUTE AUTO 2.6 K/mm3 (1.8-7.7); NEUTROPHILS PERCENT AUTO 44.2 % (41.0-71.0); NRBC ABSOLUTE 0.00 (0.00-0.02); NRBC PERCENT 0.0 % (0.0-0.2); PLATELET COUNT,PLT 195 K/mm3 (150-400); RED BLOOD CELL COUNT 3.52 M/mm3 (4.52-5.90); WHITE BLOOD CELL COUNT,WBC 5.98 K/mm3 (3.9-11.3)
[2025-07-24 05:34] LABS: A/G RATIO 0.6 (1-2); ALANINE AMINOTRANSFERASE,ALT 148.0 U/L (16-63); ASPARTATE AMNIOTRANSFERASE,AST 246.0 U/L (15-37); BILIRUBIN TOTAL 0.9 mg/dL (0.2-1.0); BLOOD UREA NITROGEN,BUN 13.0 mg/dL (7-18); CARBON DIOXIDE,CO2 31.0 mEq/L (21-32); CHLORIDE,CL 96.0 mEq/L (98-107); CREATININE 0.8 mg/dL (0.7-1.3); EST CRCL DRUG DOSING (CG) 109.89 mL/min; ESTIMATED GFR 99.0 mL/min (>60); GLUCOSE RANDOM 167.0 mg/dL (70-99); POTASSIUM,K 3.0 mEq/L (3.5-5.1); PROTEIN TOTAL,TP 7.3 g/dl (6.4-8.2); SODIUM,NA 137.0 mEq/L (136-145)
[2025-07-24] MEDS: Potassium Chloride 20 MEQ Tab.ER PO ONE (09:01)
[2025-07-25 05:04] LABS: BLOOD UREA NITROGEN,BUN 13.0 mg/dL (7-18); CARBON DIOXIDE,CO2 29.0 mEq/L (21-32); CHLORIDE,CL 97.0 mEq/L (98-107); CREATININE 0.8 mg/dL (0.7-1.3); EST CRCL DRUG DOSING (CG) 109.89 mL/min; ESTIMATED GFR 99.0 mL/min (>60); GLUCOSE RANDOM 147.0 mg/dL (70-99); POTASSIUM,K 2.9 mEq/L (3.5-5.1); SODIUM,NA 135.0 mEq/L (136-145)
== END 2025-07-25 15:25 | disposition home or self-care (01) | DRG 775 ==
LOC: JD.ED 00:03 → JD.MS 03:03 → OBSVTOIN 11:28 → JD.ICU 07-21 08:50 → JD.MS 07-24 08:24
PROVIDERS: ADMIT Family Medicine; ATTEND Family Medicine
PROC: HZ2ZZZZ Detoxification Services for Substance Abuse Treatment (ICD-10-PCS; principal; 2025-07-20)
DX: F10.239 Alcohol dependence with withdrawal, unspecified (principal); S22.41XA Multiple fractures of ribs, right side, initial encounter for closed fracture; J69.0 Pneumonitis due to inhalation of food and vomit; J18.9 Pneumonia, unspecified organism; J96.01 Acute respiratory failure with hypoxia; I21.A1 Myocardial infarction type 2; E83.42 Hypomagnesemia; E87.6 Hypokalemia; E86.0 Dehydration; T79.6XXA Traumatic ischemia of muscle, initial encounter; E78.00 Pure hypercholesterolemia, unspecified; I10 Essential (primary) hypertension; F41.9 Anxiety disorder, unspecified; Z85.828 Personal history of other malignant neoplasm of skin; Z86.16 Personal history of COVID-19; Z79.899 Other long term (current) drug therapy; Z79.84 Long term (current) use of oral hypoglycemic drugs; Z90.49 Acquired absence of other specified parts of digestive tract
CPT/HCPCS: 36415; 36600; 70450; 70450-26; 70486; 70486-26; 71045; 71045-26; 71260; 71260-26; 71275; 71275-26; 72125; 72125-26; 73030-26-RT; 73030-RT; 74177; 74177-26; 76705; 76705-26; 80048; 80053; 80307; 82140; 82550; 82803; 82947; 82977; 83690; 83735; 84100; 84484; 85025; 85379; 85610; 92610-GN; 93005; 94761; 94762; 96361; 96365; 96375; 97110-GO; 97110-GP; 97116-GP; 97162-GP; 97165-GO; 97530-GO; 97530-GP; 97535-GO; 99284; 99285-25; A9270-GY; J0456; J0696; J1650; J1808; J1885; J2060; J2270; J2560; J3010; J3411; J3475; J3480; J3490; J7030; J7050; J7120; Q9967